=== PATIENT | female | born 1990 | race Caucasian/White ===

== ENCOUNTER 2017-07-11 10:17 | Emergency (ER) | payer OTHER ==
[~2017-07-11] VITALS: Ht 154.9 cm; Wt 54.4 kg
[~2017-07-11 10:17] MED LIST: OMEPRAZOLE40 M1 PO; OMEPRAZOLE40 MG PO; ZOFRAN4 M2 PO
--- NOTE | 2017-07-11 10:37 | ED UPPER/LOWER EXTREMITY COMPL ---
History of Present Illness General Chief Complaint: Foot or Ankle Injury Stated Complaint: SPRAINED ANKLE X 5WKS AGO/PAIN Source: patient Exam Limitations: no limitations Vital Signs & Intake/Output Vital Signs & Intake/Output Vital Signs Date Time Temp Pulse Resp B/P B/P Pulse O2 O2 Flow FiO2 Mean Ox Delivery Rate 07/11 1253 98.6 78 18 118/70 99 Room Air 07/11 1034 98.5 82 20 122/75 99 Room Air Allergies Coded Allergies: Penicillins (Intermediate, HIVES, RASH 07/11/17) amoxicillin (Intermediate, HIVES, RASH 07/11/17) Reconcile Medications Etonogestrel/Ethinyl Estradiol (Nuvaring Vaginal Ring) 0.12 MG -0.015 MG/24 HR VAG.RING 1 EACH VG Q30D BC (Reported) use for 3 weeks, skip for 1 week Triage Note: SPRAINED RIGHT ANKLE ABOUT 5 WEEKS AGO. STATES SHE HAD AN XRAY BUT IT HASN'T GOTTEN ANY BETTER SINCE THE SPRAIN. STATES ON MONDAY MORNING SHE HEARD CRACKING SOUND BY HER ACHILLES TENDON AND SHE HAS HAD A SHARP BURNING SENSATION ON LEFT SIDE OF ANKLE Triage Nurses Notes Reviewed? yes Onset: Abrupt Duration: constant Timing: recent history Severity: moderate Severity Numbers: 5 : No Patient currently breastfeeds: No HPI: Patient is a 26-year-old female who presents emergency room stating that approximately 5 weeks ago patient twisted her right ankle after ambulating where she followed up that day with the urgent care facility received x-rays of foot and ankle with no concerns of fracture patient states that the pain has been persistent to the right ankle where she has not taken any medications for her symptoms nor has patient followed up with a primary care doctor or an orthopedic doctor, Patient does state that at rest yesterday she had a acute onset of right Achilles pain and medial ankle pain and a "popping sensation " while she was sleeping. Patient denies any new trauma or twisting or falls since. Denies any shortness of breath or hemoptysis Past History Travel History Traveled to [place] past 21 day No Medical History Any Pertinent Medical History? none Neurological: NONE EENT: NONE Cardiovascular: NONE Respiratory: NONE Gastrointestinal: GASTRITIS Hepatic: NONE Renal: NONE Musculoskeletal: NONE Psychiatric: NONE Endocrine: NONE Blood Disorders: NONE Cancer(s): NONE [employer] SUPERVISOR/Reproductive: NONE Tetanus Vaccine: 07/13/11 Surgical History Surgical History: LASER SURGERY ON CERVIX Psychosocial History Who do you live with Family Services at Home None What is your primary language Serbian Tobacco Use: Never used ETOH Use: occasional use Illicit Drug Use: denies illicit drug use Family History Family History, If Any: grandfather FH: heart disease Hx Contributory? No Review of Systems Review of Systems Constitutional: Reports: no symptoms. EENTM: Reports: no symptoms. Respiratory: Reports: no symptoms. Cardiovascular: Reports: no symptoms. Gastrointestinal/Abdominal: Reports: no symptoms. Genitourinary: Reports: no symptoms. Musculoskeletal: Reports: see HPI, joint pain. Skin: Reports: no symptoms. Neurological/Psychological: Reports: no symptoms. Hematologic/Endocrine: Reports: no symptoms. Immunological: Reports: no symptoms. All Other Systems: Reviewed and Negative Physical Exam Physical Exam General Appearance: no apparent distress, alert, comfortable Head: atraumatic Eyes: Bilateral: normal appearance. Ears, Nose, Throat: hearing grossly normal Neck: normal inspection Cardiovascular/Respiratory: no respiratory distress Peripheral Pulses: 2+ dorsalis pedis (R) Neurologic/Tendon: normal sensation, normal motor functions, normal tendon functions, responds to pain, no evidence tendon injury, no pulse deficit Skin: intact, normal color, warm/dry Comments: Right knee normal inspection nontender Right ankle mild generalized point tenderness noted to medial and lateral malleoli decreased active range of motion with ankle movements Mild calf pain 5 out of 5 resisted range of motion with mild pain with dorsiflexion plantar flexion inversion eversion Right foot normal inspection Progress Differential Diagnosis: arterial insufficiency, compartment syndrome, contusion, dislocation, DVT, fracture, gout, septic arthritis, sprain, tendon injury Plan of Care: Orders Procedure Date/time Status US-UNILATERAL VENOUS DOPPLER 07/11 1125 Active Patient was offered x-rays for reexamination of the ankle however she declined. Patient will receive ultrasound for evaluation of calf pain and DVT rule out. Patient was neurovascularly intact to right lower extremity no foot pain upon palpation I had a long extensive conversation with patient for physical therapy exercises and stretching exercises for patient to improve ankle sprain that symptoms Ultrasound was unremarkable for DVT. Discussed results with patient. Diagnostic Imaging: Viewed by Me: Ultrasound. Radiology Impression: no acute abnormality Comments: PATIENT: JOYCE BUENROSTRO PRESENT AGE: 26 PATIENT ACCOUNT NO: [id number] : 91 LOCATION: [facility] ORDERING PHYSICIAN: Ramana LEZAMA SERVICE DATE: 07/11/17 EXAM TYPE: US - US-UNILATERAL VENOUS DOPPLER EXAMINATION: US TRIPLEX LOWER EXTREMITY, RIGHT CLINICAL INFORMATION: Right leg tenderness COMPARISON: None TECHNIQUE: Color-flow triplex imaging with spectral analysis and compression Doppler were performed on the lower extremity. FINDINGS: Respiratory variation, normal compression and augmented flow are noted throughout the lower extremity. The visualized common femoral vein, superficial femoral vein, profunda femoral vein, popliteal vein and midcalf peroneal and posterior tibial venous segments show no evidence of deep venous thrombosis. There is no Mckenna's cyst. IMPRESSION: Normal triplex scan without evidence of deep venous thrombosis involving the lower extremity. DICTATED BY: Christopher Thurman MD DATE/TIME DICTATED:07/11/171226 EXPORT DOCUMENTS CLERK:CANDIS DATE/TIME TRANSCRIBED:07/11/171226 Departure Departure Disposition: HOME OR SELF CARE Condition: Stable Clinical Impression Primary Impression: Sprain of ankle, right Referrals: Lata FA[facility]CHILD,Bruna Angel (PCP/Family) Raul Milligan MD Additional Instructions: As discussed begin icing the area directly 20 minutes every 2 hours, begin over- the-counter ibuprofen for pain and inflammation, follow-up this week with primary care doctor or orthopedic Dr. Milligan for further evaluation and possible physical therapy referral, if symptoms worsen return to emergency room Begin the stretching exercises in the strengthening exercises demonstrated 2 in the emergency room to improve your symptoms Begin using the crutches that has already been provided to up to walk without pain Departure Forms: Customer Survey General Discharge Information
[2017-07-11] MEDS ORDERED: NUVARING VAGIN1 EACH VG (10:52)
--- NOTE | 2017-07-11 12:31 | ULTRASOUND REPORT ---
EXAMINATION: US TRIPLEX LOWER EXTREMITY, RIGHT CLINICAL INFORMATION: Right leg tenderness COMPARISON: None TECHNIQUE: Color-flow triplex imaging with spectral analysis and compression Doppler were performed on the lower extremity. FINDINGS: Respiratory variation, normal compression and augmented flow are noted throughout the lower extremity. The visualized common femoral vein, superficial femoral vein, profunda femoral vein, popliteal vein and midcalf peroneal and posterior tibial venous segments show no evidence of deep venous thrombosis. There is no Mckenna's cyst. IMPRESSION: Normal triplex scan without evidence of deep venous thrombosis involving the lower extremity.
[2017-07-11 12:53] VITALS: BP 118/70
== END 2017-07-11 13:11 ==
LOC: ERH 10:17
DX: S93.401A Sprain of unspecified ligament of right ankle, initial encounter (principal); X58.XXXA Exposure to other specified factors, initial encounter; Y92.9 Unspecified place or not applicable; Y93.9 Activity, unspecified